=== PATIENT | male | born 1950 | race Caucasian/White ===

== ENCOUNTER 2016-05-16 08:31 | Day surgery (SDC) | payer MEDICARE, BC ==
--- NOTE | ~2016-05-16 | EGD ---
EGD REPORT [facility] [address] [place] [place] [address] NAME: LORETTA SOL SR : 46 STATUS : REG [facility] [place] [facility] PAT#: [id number] AGE: 65 ADM/REG DATE : 05/16/16 MR#: [id number] REPORT SERV DATE: 05/16/16 DICTATED BY: FRANCA JANE DATE: 05/16/16 REPORT STATUS : Draft TRANSCRIBED BY: [facility] DATE: 05/16/16 [facility] Patient Name: Loretta Sol Date of : 1950 Attending MD: FRANCA JANE MD Procedure Date No Time: 05/16/2016 Procedure: Colonoscopy Indications: Hematochezia; FHx negative. Patient Profile: Informed consent was obtained from the patient by me prior to the procedure. Risks, benefits, and alternatives were discussed including the risk of bleeding, perforation, infection, reaction to medicine, missed lesion, and cardiopulmonary complications. Referring MD: Renée SEXTON Medicines: Monitored Anesthesia Care Complications: No immediate complications. Procedure: Pre-Anesthesia Assessment: - ASA Grade Assessment: III - A patient with severe systemic disease. After I obtained informed consent, the scope was passed under direct vision. Throughout the procedure, the patient's blood pressure, pulse, and oxygen saturations were monitored continuously. The CF [id number] was introduced through the anus and advanced to the cecum, identified by appendiceal orifice and ileocecal valve. The colonoscope was slowly withdrawn with careful examination all mucosal surfaces including specific attention around flexures and tip deflection behind folds; retroflexion performed in rectum. The colonoscopy was performed without difficulty. The patient tolerated the procedure well. The quality of the bowel preparation was adequate. The ileocecal valve, appendiceal orifice and rectum were photographed. CO2 utilized. Findings: A sessile polyp was found in the proximal ascending colon. The polyp was 10 mm in size. The polyp was removed with a cold snare. Resection and retrieval were complete. Two sessile polyps were found in the descending colon. The polyps were 5 mm in size. These polyps were removed with a cold biopsy forceps. Resection and retrieval were complete. A few medium-mouthed diverticula were found in the sigmoid colon. External internal hemorrhoids were found, and they were moderate. Impression: - One 10 mm polyp in the proximal ascending colon. EGD REPORT [address] [place]. [address] NAME: LORETTA SOL : [birth year] STATUS : REG [facility] [place] [facility] PAT#: [id number] AGE: 65 ADM/REG DATE : 05/16/16 MR#: [id number] REPORT SERV DATE: 05/16/16 DICTATED BY: FRANCA JANE DATE: 05/16/16 REPORT STATUS : Draft TRANSCRIBED BY: [employer] DATE: 05/16/16 Resected and retrieved. - Two 5 mm polyps in the descending colon. Resected and retrieved. - Diverticulosis in the sigmoid colon. - External internal hemorrhoids. Recommendation: - Patient has a contact number available for emergencies. The signs and symptoms of potential delayed complications were discussed with the patient. Return to normal activities tomorrow. Written discharge instructions were provided to the patient. - Regular diet. - Continue present medications. - Await pathology results. - Repeat colonoscopy for surveillance based on pathology results. - Advised to restart Xarelto today. - Anusol HC cream; he will call office for referral Dr. Schuler if more bleeding despite topicals. Procedure Code(s): --- Professional --- 35553, Colonoscopy, flexible, proximal to splenic flexure; with removal of tumor(s), polyp(s), or other lesion(s) by snare technique 49748, 59, Colonoscopy, flexible, proximal to splenic flexure; with biopsy, single or multiple Diagnosis Code(s): --- Professional --- D12.4, Benign neoplasm of descending colon D12.2, Benign neoplasm of ascending colon K64.4, Residual hemorrhoidal skin tags K64.8, Other hemorrhoids K57.30, Diverticulosis of large intestine without perforation or abscess without bleeding K92.1, Melena CPT copyright 2013 [employer]. All rights reserved. The codes documented in this report are preliminary and upon heel seat laster review may be revised to meet current compliance requirements. FRANCA JANE MD 05/16/2016 10:14 AM This report has been signed electronically. Number of Addenda: 0 EGD REPORT [facility] [address] [address] NAME: LORETTA SOL SR : [birth year] STATUS : REG [facility] [place] [facility] PAT#: [id number] AGE: 65 ADM/REG DATE : 05/16/16 MR#: [id number] REPORT SERV DATE: 05/16/16 DICTATED BY: FRANCA JANE DATE: 05/16/16 REPORT STATUS : Draft TRANSCRIBED BY: [employer] DATE: 05/16/16 Note Initiated On: 05/16/2016 9:37 AM Scope Withdrawal Time 0 hours 15 minutes 29 seconds [address] [address]
[~2016-05-16 08:31] MED LIST: AFEDITAB30 MG PO; ASAB PO; AVANDIA4 PO; CARDCD240 PO; COREG12 PO; COUMADIN6 MG PO; COUMADIN7.5 MG PO; DSS PO; EXFORGE1 TA1 OR; EXFORGE1 TAB PO; FLEX PO; GLUCOPHAGE1000 MG PO; GLUCOTRO10 PO; GLUCPH PO; GLUCXL10 PO; JANTOVEN10 MG PO; JANTOVEN6 MG PO; JANTOVEN7.5 MG PO; JANUVIA50 PO; LACT30UDL PO; LIPITOR10 PO; LOM PO; LOP25 PO; MAALOX PO; MOBIC15 MG OR; MOBIC15 MG PO; MOMUD PO; NEUR300 PO; NEXIUM40 PO; NICODERM C21 MG/241 TOP; NIFEDICAL XL30 MG PO; NORCO1 TA1 PO; NOVOLOG SC; NXL3 PO; OXYCOD PO; OXYCON20 PO; PEP20 PO; PEPCID40 MG OR; PEPCID40 MG PO; PRAND1 PO; PRIN20 PO; PROSCAR5 PO; TOPXL100 PO; VITAMIN C100 MG PO; VITAMIN C500 MG OR; VITC500 PO; WELCHOL 625 MG625 MG PO; WELCHOL625 MG OR; X5 PO; XARELTO20 MG PO; ZESTRIL20 MG PO; ZOFRAN ODT4 MG PO
== END 2016-05-16 23:59 | disposition home or self-care (01) ==
LOC: DMU 08:31
PROVIDERS: Internal Medicine Gastroenterology
PROC: 0DBK8ZX Excision of Ascending Colon, Via Natural or Artificial Opening Endoscopic, Diagnostic (ICD-10-PCS; principal; 2016-05-16 09:30)
PROC: 0DBM8ZX Excision of Descending Colon, Via Natural or Artificial Opening Endoscopic, Diagnostic (ICD-10-PCS; 2016-05-16 09:30)
DX: D12.2 Benign neoplasm of ascending colon (principal); D12.4 Benign neoplasm of descending colon; K64.4 Residual hemorrhoidal skin tags; K64.8 Other hemorrhoids; K57.30 Diverticulosis of large intestine without perforation or abscess without bleeding; K92.1 Melena; M19.90 Unspecified osteoarthritis, unspecified site; K21.9 Gastro-esophageal reflux disease without esophagitis; E11.9 Type 2 diabetes mellitus without complications; J32.9 Chronic sinusitis, unspecified; I48.91 Unspecified atrial fibrillation; G47.33 Obstructive sleep apnea (adult) (pediatric); I10 Essential (primary) hypertension; Z88.2 Allergy status to sulfonamides; Z79.899 Other long term (current) drug therapy; Z99.89 Dependence on other enabling machines and devices; Z96.641 Presence of right artificial hip joint; Z90.49 Acquired absence of other specified parts of digestive tract; Z98.890 Other specified postprocedural states
CPT/HCPCS: 82962; 88305

== ENCOUNTER 2016-07-28 07:44 | Inpatient (IN) | payer MEDICARE, BC ==
--- NOTE | ~2016-07-28 | HP ---
History And Physical [place] [place] [id number] [place]. [address] NAME: LORETTA SIDHU SR : 48 STATUS : ADM IN PAT#: [id number] AGE: 65 ADM/REG DATE : 07/28/16 MR#: [id number] REPORT SERV DATE: 07/28/16 DICTATED BY: LORETTA OCHOA DATE: 07/28/16 REPORT STATUS : Draft TRANSCRIBED BY: MODL DATE: 07/28/16 DATE OF ADMISSION: 07/28/2016 REASON FOR ADMISSION: Acute exacerbation of COPD with shortness of breath three to four days, cough productive of clear to slightly yellow sputum, and hypoxemia. HISTORY OF PRESENT ILLNESS: This is a 65-year-old white male, who is followed by Dr. Indra Alejo. He does not have a diagnosis of COPD in the past, however, has cigarette habit of a pack a day. He does have distal peripheral edema and obstructive sleep apnea. He has morbid obesity. He has had no fever or chills. He came to emergency room after developing cough for the last three to four days and shortness of breath. He does have dyspnea and shortness of breath. He has not been eating well last three to four days and he said he quit smoking on Thursday and has not got any better. He is to see Dr. Indra Alejo this morning for regular physical examination. He does have longstanding history of adult-onset diabetes mellitus. He does not check his blood sugars at home. He goes by the hemoglobin A1c that Dr. Alejo tells him at that visit, however, he does not remember what the hemoglobin A1cs have been. He was seen in the emergency room by Dr. Méndez. Initially, heard rales in his lungs, wheezing on expiration, and breathing treatment has been given. Rocephin and Zithromax were given IV before calling me and the patient is amenable to admission to the hospital for further evaluation and treatment. PAST MEDICAL HISTORY: He has history of atrial fibrillation. Dr. Jim Felix has tried DC electrical cardioversion. He has permanent atrial fibrillation and is on Xarelto. He did have a rapid heart rate when he arrived here, but on IV fluid, it had come down to the rate of 95-96. He is on carvedilol at home. He does have cigarette addiction and is desiring cigarette now. He has obstructive sleep apnea. HOME MEDICATIONS: Include the following: Lisinopril 20 mg p.o. daily, metformin 500 mg p.o. b.i.d., nifedipine XL 30 mg p.o. daily, Xarelto 20 mg p.o. at bedtime, Januvia 50 mg p.o. q.a.m., Proctosol-HC p.r.n. hemorrhoids, ascorbic acid 500 mg p.o. every morning, Lactaid 2 p.o. p.r.n. dairy products, Symbicort 160/4.5, he has been taking one puff every six hours p.r.n., carvedilol 12.5 mg p.o. b.i.d., Welchol 1250 mg after breakfast, Lomotil p.r.n. diarrhea, Proscar 5 mg at bedtime, and glipizide XL 10 mg p.o. daily. ALLERGIES: INCLUDE SULFA DRUGS. SOCIAL HISTORY: He is . Lives at home with his . They are living in [facility] in the [facility] in a house where they recently bought. He grew up in [place] and has attended [employer] on [facility] in the past. He smokes a pack of cigarettes a day. He is retired from the [employer], [employer] in [place] [facility]. He is retired twice. He gave up alcohol about a year ago, but he goes to [place], [place] and takes a drink occasionally when he History And Physical [address] [address] NAME: LORETTA SIDHU SR : [birth year] STATUS : ADM IN [facility]#: [id number] AGE: 65 ADM/REG DATE : 07/28/16 MR#: [id number] REPORT SERV DATE: 07/28/16 DICTATED BY: LORETTA OCHOA DATE: 07/28/16 REPORT STATUS : Draft TRANSCRIBED BY: CAROLINA DATE: 07/28/16 meggan. FAMILY HISTORY: Two brothers and two sisters, both are alive and well with some obesity. His mother of lung clot. Father of lung cancer. REVIEW OF SYSTEMS: He has had no headache, eye pain, double vision, nausea, vomiting, diarrhea. No fits, seizures, or convulsions. He has had anorexia without eating last several days. He has swelling of lower extremities and [facility] is working on the lymphedema of lower extremities with wraps and stockings. He has swelling of his lower extremities, but no melena hematemesis, fits, seizures, convulsions. He gets around with a cane. He does not walk very well or very fast and now has dyspnea with exertion. The remainder of the review of systems is negative. PHYSICAL EXAMINATION: GENERAL: Obese white male, in no acute distress. VITAL SIGNS: His blood pressure was 129/58 on arrival with a heart rate of 104, respiratory rate 18, he is afebrile, oxygen saturation 94 on room air. HEENT: EOMI. Sclerae clear. Conjunctivae pink. NECK: No bruit without any JVD. CHEST: Clear to A and P. HEART: Irregular regular S1, S2 without murmur, gallop, or click. ABDOMEN: Obese, nontender. Bowel sounds are positive. No masses felt. EXTREMITIES: Have 2+ pitting edema with some violaceous appearance to it. No distal pulses are palpable. NEUROLOGIC: DTRs are not elicitable in the knees and ankles. Director [facility] is equal and symmetric. Coordination intact. The patient is alert, oriented to person, place, and time. His speech is cogent and goal-directed. LYMPHATICS: There is no adenopathy palpable. SKIN: Slightly violaceous appearance of lower extremities. LABORATORY DATA: The CMP shows a procalcitonin of 0.19. The sodium is 135, potassium 3.5, carbon dioxide was 23, creatinine 0.89, BUN 18, glucose is 236. His albumin is 3.3, total bilirubin was 1.4 with normal liver tests and his troponin less than 0.02. His chest x-ray showed diffuse light interstitial changes. No specific infiltrate. The radiologist reads as no acute cardiopulmonary abnormality. There appears to be an interstitial predominance to my reading. The BNP was 194. The lactate level was 1.5. White count 18,000, hemoglobin 15.0, hematocrit 42.9, platelets are 159. MCV was 96.8. His prothrombin time was 25.6 with an INR of 2.4 on the Xarelto. ASSESSMENT: 1. Pneumonia, probably atypical bilateral interstitial prominence, on Zithromax now, we will continue. 2. Obstructive sleep apnea. We will start his home CPAP. History And Physical [address] [place]. [address] NAME: LORETTA SIDHU : 46 STATUS : ADM IN PAT#: [id number] AGE: 65 ADM/REG DATE : 07/28/16 MR#: [id number] REPORT SERV DATE: 07/28/16 DICTATED BY: LORETTA OCHOA. DATE: 07/28/16 REPORT STATUS : Draft TRANSCRIBED BY: MODL DATE: 07/28/16 3. Cigarette addiction. We will add nicotine patch to avoid nicotine withdrawal during the hospitalization. 4. Degenerative joint disease, hips and knees. 5. Probable chronic obstructive pulmonary disease though this has never been a formal diagnosis for him and we will reserve the formal diagnosing to Dr. Alejo with PFTs after this acute exacerbation. 6. Atrial fibrillation. Dr. Felix follows, failed cardioversion, now on permanent anticoagulation. 7. Diabetes. He does not check very much and apparently is not a diet restricted. 8. Coagulopathy. 9. Lymphedema of lower extremities. We will restart his home regimen for use here in the hospital. PLAN: IV Rocephin will change to p.o. Zithromax. Have his home CPAP and aerosols will be started here. I expect a one- to two-day hospitalization to be sufficient. GARDENIA/CAROLINA Loretta Ochoa M.D. / [id number] CC: Reza Smith M.D.
--- NOTE | ~2016-07-28 | DS ---
Discharge Summary [facility] [address] [place]. [address] NAME: LORETTA SIDHU : 46 STATUS : DIS IN PAT#: [id number] AGE: 65 ADM/REG DATE : 07/28/16 MR#: [id number] REPORT SERV DATE: 07/31/16 DICTATED BY: DEWAYNE MARCUS DATE: 07/30/16 REPORT STATUS : Draft TRANSCRIBED BY: MODL DATE: 07/30/16 ADMISSION DATE: 07/28/2016 DISCHARGE DATE: 07/30/2016 PRINCIPAL DIAGNOSIS: Acute bronchitis with cultures positive for gram-positive cocci. SECONDARY DIAGNOSES: Steroid exacerbated type 2 diabetes, leukocytosis, edema due to nifedipine, atrial fibrillation, and chronic obstructive pulmonary disease. HISTORY OF PRESENT ILLNESS: Please see Dr. Stoner's dictation on 07/28/2016. HOSPITAL COURSE: Admitted with acute shortness of breath with concern for pneumonia; however, on a followup chest x-ray, PA and lateral the appearance of infiltrate had gone away. No pneumonia was identified. The patient's wheezing had improved substantially after steroids and aerosols with normal exam to follow his antibiotics we will be changed to p.o. Culture did drop a high number of polymorphonuclear neutrophils as well as gram positive cocci. There was a concern given his leukocytosis, actually was a bacterial bronchitis in the setting of COPD. He was given changed oral doxycycline to finish a seven-day course, four days of prednisone, albuterol, Restoril inhaler in addition to his home meter dose inhalers. His warfarin and other medications could be continued unchanged. He will follow up with Dr. Renée Alejo in one to two weeks. DICTATED BY: Reza Villalpando/CAROLINA Dewayne Marcus M.D. / [id number] CC: Reza Villalpando M.D.
[2016-07-28] MEDS ORDERED: JANUVIA50 PO (07:56)
[2016-07-28] MEDS ORDERED: XARELTO20 MG PO (07:57)
[2016-07-28] MEDS ORDERED: GLUCPH PO (07:57)
[2016-07-28] MEDS ORDERED: LOM PO (07:58)
[2016-07-28] MEDS ORDERED: PROSCAR5 PO (07:58)
[2016-07-28] MEDS ORDERED: GLUCXL10 PO (07:59)
[2016-07-28 08:00] LABS: BASOPHILS 0.2 %; BASOPHILS ABSOLUTE 0.03 10/3/uL (0.0-0.16); EOSINOPHILS 0.6 %; EOSINOPHILS ABSOLUTE 0.11 10/3/uL (0.0-0.53); ER CBC TAT 0 Hrs 11 Mins; HEMATOCRIT 42.9 % (40.0-51.0); IMMATURE GRANULOCYTES 0.3 %; IMMATURE GRANULOCYTES ABSOLUTE 0.06 10/3/uL (0.0-0.11); LYMPHOCYTES 4.5 %; LYMPHOCYTES ABSOLUTE 0.82 10/3/uL (0.67-4.30); MANUAL DIFF NO %; MEAN CORPUSCULAR HEMOGLOB 33.9 pg (26.0-34.0); MEAN CORPUSCULAR VOLUME 96.8 fL (80-100); MEAN PLATELET VOLUME 9.8 fL (9.2-13.0); MONOCYTES ABSOLUTE 1.08 10/3/uL (0.21-1.20); NEUTROPHILS 88.4 %; NEUTROPHILS ABSOLUTE 15.94 10/3/uL (2.02-8.40); PLATELET COUNT 159 10/3/uL (150-400); RBC DISTRIBUTION WIDTH 12.6 % (12.0-16.0); RED CELL COUNT 4.43 10/6/uL (4.7-6.1)
[2016-07-28] MEDS ORDERED: PROCTOSOL HC TOP (08:00)
[2016-07-28] MEDS ORDERED: VITC500 PO (08:02)
[2016-07-28] MEDS ORDERED: COREG12 PO (08:04)
[2016-07-28] MEDS ORDERED: NXL3 PO (08:04)
[2016-07-28] MEDS ORDERED: PRIN20 PO (08:04)
[2016-07-28] MEDS ORDERED: LACTAID PO (08:05)
[2016-07-28] MEDS ORDERED: WELCHOL625 MG PO (08:05)
[2016-07-28 08:07] LABS: INTERNATIONAL NORMAL RATI 2.4 UNITS (-); PARTIAL THROMBO TIME 39.8 SEC (22.5-37.2); PROTIME (NOT ORD) 25.6 SEC (12.0-14.5)
[2016-07-28] MEDS ORDERED: SYMBICORT 160/41 INH INH (08:07)
[2016-07-28 08:18] LABS: A/G RATIO 0.9 (0.7-1.9); ALBUMIN 3.3 G/DL (3.5-5.0); CHLORIDE, SERUM 104 MMOL/L (96-112); CREATININE 0.89 MG/DL (0.70-1.30); GFR AFRICAN AMERICAN 103 ML/MIN (>=60); GFR NON AFRICAN AMERICAN 88 ML/MIN (>=60); GLOBULIN 3.7 G/DL (2.5-4.1); POTASSIUM, SERUM 3.9 MMOL/L (3.5-5.3); SGOT(AST) 10 U/L (5-40); SGPT(ALT) 20 U/L (5-65); SODIUM, SERUM 135 MMOL/L (135-148); TOTAL BILIRUBIN 1.4 MG/DL (0-1.2); TROPONIN I <0.02 NG/ML (<0.05)
[2016-07-28 08:19] LABS: ALKALINE PHOSPHATASE 59 U/L (45-117); BUN (BLOOD UREA NITROGEN) 8 MG/DL (6-23); CO2 (CARBON DIOXIDE) 23 MMOL/L (24-34); GLUCOSE, SERUM 236 MG/DL (60-99)
[2016-07-28 08:22] LABS: LACTATE 1.5 MMOL/L (0.3-2.4)
[2016-07-28 08:57] LABS: PROCALCITONIN 0.19 ng/mL (<0.5)
[2016-07-29 05:07] LABS: BASOPHILS 0.1 %; BASOPHILS ABSOLUTE 0.01 10/3/uL (0.0-0.16); EOSINOPHILS 0.1 %; EOSINOPHILS ABSOLUTE 0.02 10/3/uL (0.0-0.53); HEMATOCRIT 39.8 % (40.0-51.0); HEMOGLOBIN 14.1 g/dL (13.6-17.8); IMMATURE GRANULOCYTES 0.3 %; IMMATURE GRANULOCYTES ABSOLUTE 0.05 10/3/uL (0.0-0.11); LYMPHOCYTES 8.2 %; MANUAL DIFF NO %; MEAN CORPUS HGB CONC 35.4 g/dL (32.0-36.0); MEAN CORPUSCULAR HEMOGLOB 34.1 pg (26.0-34.0); MEAN CORPUSCULAR VOLUME 96.4 fL (80-100); MONOCYTES 5.6 %; MONOCYTES ABSOLUTE 0.81 10/3/uL (0.21-1.20); NEUTROPHILS 85.7 %; PLATELET COUNT 180 10/3/uL (150-400); RBC DISTRIBUTION WIDTH 12.4 % (12.0-16.0); RED CELL COUNT 4.13 10/6/uL (4.7-6.1); WHITE BLOOD CELLS 14.6 10/3/uL (4.5-10.5)
[2016-07-30 06:11] LABS: BASOPHILS 0.2 %; BASOPHILS ABSOLUTE 0.02 10/3/uL (0.0-0.16); EOSINOPHILS 1.1 %; EOSINOPHILS ABSOLUTE 0.13 10/3/uL (0.0-0.53); HEMATOCRIT 41.5 % (40.0-51.0); HEMOGLOBIN 14.4 g/dL (13.6-17.8); IMMATURE GRANULOCYTES 0.2 %; IMMATURE GRANULOCYTES ABSOLUTE 0.02 10/3/uL (0.0-0.11); LYMPHOCYTES 17.7 %; LYMPHOCYTES ABSOLUTE 2.01 10/3/uL (0.67-4.30); MEAN CORPUS HGB CONC 34.7 g/dL (32.0-36.0); MEAN CORPUSCULAR HEMOGLOB 33.9 pg (26.0-34.0); MEAN CORPUSCULAR VOLUME 97.6 fL (80-100); MEAN PLATELET VOLUME 9.9 fL (9.2-13.0); MONOCYTES 6.6 %; MONOCYTES ABSOLUTE 0.75 10/3/uL (0.21-1.20); NEUTROPHILS 74.2 %; PLATELET COUNT 216 10/3/uL (150-400); RBC DISTRIBUTION WIDTH 12.8 % (12.0-16.0); RED CELL COUNT 4.25 10/6/uL (4.7-6.1); WHITE BLOOD CELLS 11.3 10/3/uL (4.5-10.5)
[2016-07-30 06:12] LABS: MANUAL DIFF NO %
[2016-07-30 06:23] LABS: CHOL/HDL RATIO(NOT ORDER) 4.5 (0-5)
[2016-07-30] MEDS ORDERED: MONODOX100 MG PO (10:26)
[2016-07-30] MEDS ORDERED: P20 PO (10:28)
[2016-07-30] MEDS ORDERED: PROVHFA INH (10:29)
[2016-07-30] MEDS ORDERED: GGEXPUD PO (10:30)
[2016-07-30] MEDS ORDERED: HABIT21 TOP (10:33)
== END 2016-07-30 11:54 | disposition home or self-care (01) | DRG 191 ==
LOC: ER 07:44 → ER/OF 12:25 → 6NO 13:30
PROVIDERS: Hospitalist; Internal Medicine
DX: J44.0 Chronic obstructive pulmonary disease with (acute) lower respiratory infection (principal); E66.2 Morbid (severe) obesity with alveolar hypoventilation; I48.2 Chronic atrial fibrillation; E11.65 Type 2 diabetes mellitus with hyperglycemia; J44.1 Chronic obstructive pulmonary disease with (acute) exacerbation; J20.9 Acute bronchitis, unspecified; R09.02 Hypoxemia; F17.210 Nicotine dependence, cigarettes, uncomplicated; M16.0 Bilateral primary osteoarthritis of hip; M17.0 Bilateral primary osteoarthritis of knee; T38.0X5A Adverse effect of glucocorticoids and synthetic analogues, initial encounter; I89.0 Lymphedema, not elsewhere classified; T46.1X5A Adverse effect of calcium-channel blockers, initial encounter; B96.89 Other specified bacterial agents as the cause of diseases classified elsewhere; D64.9 Anemia, unspecified; Z68.36 Body mass index [BMI] 36.0-36.9, adult; Z79.84 Long term (current) use of oral hypoglycemic drugs; Z79.01 Long term (current) use of anticoagulants; Z88.2 Allergy status to sulfonamides
CPT/HCPCS: 71010; 71020; 80053; 80061; 82962; 83036; 83605; 83880; 84145; 84484; 85025; 85610; 85730; 87040; 87070; 87205; 87449; 93005; 94640; 96365; 96375; 99291; A9270-GY; J0456; J2930